=== PATIENT | female | born 1980 | race Caucasian/White ===

== ENCOUNTER 2024-11-01 09:11 | Emergency (ER) | payer BC, SELFPAY ==
[2024-11-01 09:25] VITALS: BP 126/90; PULSE 88; RESP 16; TEMP 36.2; O2SAT 98
--- NOTE | 2024-11-01 09:55 | CRLHL7_ITS ---
For Patients: As a result of the Cures Act, medical imaging exams and procedure reports are released immediately into your electronic medical record. You may view this report before your referring provider. If you have questions, please contact your health care provider. Indication: LOWER ABD PAIN, S/P HYSTERECTOMY 6 DAYS AGO. NO BM SINCE Technique: CT abdomen/pelvis with IV contrast, 68 mL Isovue 370 Comparison: None Findings: Lower thorax: Unremarkable Abdomen/pelvis: The liver, gallbladder and biliary system, spleen, pancreas, adrenal glands, kidneys, ureters, and bladder are unremarkable in appearance. Postsurgical changes of hysterectomy. No suspicious adnexal lesions. The suspected left ovary is unremarkable in appearance (series number 2, image 113), the right ovary is not visualized. Distended distal sigmoid colon/rectum, filled with feces with associated mural thickening and adjacent fat stranding. There is no evidence of small or large bowel obstruction. No free fluid or free air. No abscess. No abdominopelvic lymphadenopathy. The vasculature is unremarkable. Soft tissue/musculoskeletal: Likely some minimal edema in the anterior abdominal wall subcutaneous fat at trocar placement sites. The osseous structures are unremarkable. Impression: 1. Distended distal sigmoid colon/rectum, filled with feces with associated mural thickening and adjacent fat stranding, consistent with stercoral colitis. 2. There is no evidence of small or large bowel obstruction. 3. Postsurgical changes of hysterectomy without apparent complication. 4. No free fluid or free air. No definitive abscess. Please note that all CT scans at this facility use dose modulation, iterative reconstruction, and/or weight-based dosing when appropriate to reduce radiation dose to as low as reasonably achievable. Dictated by Fortunato Mckeon MD @ 11/01/2024 10:53:25 AM (Electronically Signed)
--- NOTE | 2024-11-01 09:57 | ED.GENADULT ---
HPI - General Adult General Chief complaint: Constipation Stated complaint: hysterectomy on 10/26, can't urinate or poo Time Seen by Provider: 11/01/24 09:49 History of Present Illness HPI narrative: This 43-year-old female comes in with abdominal pain. She had a hysterectomy completed elsewhere 6 days ago. She has not had much for bowel movements since then and was instructed by a provider yesterday to use multiple [id number] medications to try to get things moving. She states that after a while this made things worse with increased abdominal pain. She has had some liquid in the toilet but states that this was after administering and enema. She does not report any fevers. She does state that her urine seems to be more cloudy. She was taking some narcotics initially for pain relief but discontinued this several days ago because she did not want the adverse effects of these medicines. Related Data Home Medications ?Medication ?Instructions ?Recorded ?Confirmed acetaminophen 500 mg tablet 500 mg PO Q6H PRN 11/01/24 11/01/24 (Tylenol Extra Strength) albuterol sulfate 90 mcg/actuation 2 inh inhalation Q6-8H PRN 11/01/24 11/01/24 aerosol inhaler armodafinil 250 mg tablet (Nuvigil) 250 mg PO QAM 11/01/24 11/01/24 ascorbic acid (vitamin C) 1,000 mg 1 g PO DAILY 11/01/24 11/01/24 capsule cholecalciferol (vitamin D3) 125 125 mcg PO DAILY 11/01/24 11/01/24 mcg (5,000 unit) capsule docosahexaenoic acid (dha)-epa 120 1 cap PO DAILY 11/01/24 11/01/24 mg-180 mg capsule (Fish Oil) docusate sodium 100 mg capsule 100 mg PO BID 11/01/24 11/01/24 (Colace) ibuprofen 600 mg tablet 600 mg PO Q8H 11/01/24 11/01/24 losartan 25 mg tablet 25 mg PO DAILY 11/01/24 11/01/24 multivitamin 1 tab PO DAILY 11/01/24 11/01/24 ocrelizumab 30 mg/mL intravenous 600 mg IV [id number] 11/01/24 11/01/24 solution (Ocrevus) oxcarbazepine 150 mg tablet 150 mg PO DAILY 11/01/24 11/01/24 (Trileptal) oxycodone 5 mg tablet 5 mg PO Q4-6H PRN 11/01/24 11/01/24 sertraline 50 mg tablet 50 mg PO DAILY 11/01/24 11/01/24 sumatriptan succinate 100 mg See Rx Instructions PO .COMPLEX 11/01/24 11/01/24 tablet (Imitrex) Previous Rx's ?Medication ?Instructions ?Recorded hydrocortisone-pramoxine 2.5 %-1 % 1 applic [place] QID PRN #30 grams 11/01/24 rectal cream (Analpram-HC) ketorolac 10 mg tablet 10 mg PO Q8H 5 days #15 tabs 11/01/24 Allergies Allergy/AdvReac Type Severity Reaction Status Date / Time Benzodiazepines Allergy Unknown Verified 11/01/24 11:25 Penicillins Allergy Unknown Verified 11/01/24 11:25 Sulfa (Sulfonamide Allergy Unknown Verified 11/01/24 11:25 Antibiotics) Review of Systems Status of ROS: Reports: 10 or more systems reviewed and unremarkable except as noted in History and below Narrative: Constitutional: No fevers, no weight gain or loss. Eyes: No discharge. No vision changes. HENT: No congestion, no sore throat, no ear pain. Cardiovascular: No chest pain, no palpitations. Respiratory: No shortness of breath, no wheezes, no cough. Gastrointestinal: Abdominal pain as described above. Genitourinary: No dysuria, no hematuria. Musculoskeletal: Normal range of motion. Skin: No rashes, no pruritis. Neurological: No dizziness, weakness, sensory change, speech change. Endo/Heme/Allergies: No bruising or bleeding. No polydipsia. Pysch: no suicidality, no anxiety, no insomnia. All other systems reviewed and are negative. Exam Narrative: Exam Narrative: Constitutional: Well-developed, well-nourished, no acute distress. HEENT: Normocephalic, atraumatic. Neck: Normal range of motion. Nontender. Supple. Heart: Regular. No murmurs. Normal rate. Intact distal pulses. Lungs: Clear to auscultation. No chest discomfort. No wheezes, rhonchi, or rales. Abdomen: Decreased bowel sounds. Tenderness in the lower abdomen. Genitalia: Deferred. Back: No midline tenderness. Normal range of motion. Extremities: Normal range of motion. No injury. Skin: Intact. No rash. Warm. No erythema or pallor. Neurologic: No altered sensation. No weakness. Alert and oriented. Psychiatric: No suicidality. No anxiety or depression. No insomnia. Nursing notes and vitals signs are reviewed. Const: Vital Signs, click to edit/add: Vital Signs - 24 hr 11/01/24 09:25 11/01/24 10:24 11/01/24 10:25 Temperature 97.2 F L Pulse Rate 86 87 Pulse Rate [Pulse Oximeter] 88 Respiratory Rate 16 16 Blood Pressure 114/67 Blood Pressure [Ri ght Upper Arm] 126/90 H Pulse Oximetry 98 97 97 Oxygen Delivery Me thod Room Air 11/01/24 10:26 11/01/24 14:45 Temperature 98.7 F Pulse Rate 87 Pulse Rate [Pulse Oximeter] Respiratory Rate Blood Pressure Blood Pressure [Ri ght Upper Arm] Pulse Oximetry 97 Oxygen Delivery Me thod Course Vital Signs Vital signs: Initial Vital Signs Temperature 97.2 F L 11/01/24 09:25 Temperature Source Temporal Artery Scan 11/01/24 09:25 Pulse Rate 88 11/01/24 09:25 Pulse Rhythm Regular 11/01/24 09:25 Pulse Strength 3+ Normal 11/01/24 09:25 Respiratory Rate 16 11/01/24 09:25 Blood Pressure 126/90 H 11/01/24 09:25 Blood Pressure Mean 102 11/01/24 09:25 Blood Pressure Position Sitting 11/01/24 09:25 Pulse Oximetry 98 11/01/24 09:25 Oxygen Delivery Method Room Air 11/01/24 09:25 Vital Signs Temperature 97.2 F L 11/01/24 09:25 Pulse Rate 88 11/01/24 09:25 Respiratory Rate 16 11/01/24 09:25 Blood Pressure 126/90 H 11/01/24 09:25 Pulse Oximetry 98 11/01/24 09:25 Oxygen Delivery Method Room Air 11/01/24 09:25 Temperature 98.7 F 11/01/24 14:45 Pulse Rate 87 11/01/24 10:26 Respiratory Rate 16 11/01/24 10:25 Blood Pressure 114/67 11/01/24 10:25 Pulse Oximetry 97 11/01/24 10:26 Oxygen Delivery Method Room Air 12/05/24 09:25 Medications Administered Medications: Discontinued Medications Generic Name Dose Route Start Last Admin Trade Name Gelacio PRN Reason Stop Dose Admin Acetaminophen 1,000 mg 11/01/24 13:22 11/01/24 13:25 Acetaminophen 500 Mg Tablet PO 11/01/24 13:23 1,000 mg ONCE ONE Administration Hydromorphone HCl 0.5 mg 11/01/24 09:55 11/01/24 10:05 Hydromorphone 0.5 Mg/0.5 Ml Inj IVP 11/01/24 09:56 0.5 mg ONCE ONE Administration Sodium Chloride 500 mls @ 500 mls/hr 11/01/24 09:55 11/01/24 10:45 0.9 % Sodium Chloride 500 Ml IV 11/01/24 10:54 Infused .Q1H ONE Infusion Lidocaine HCl 6 ml 11/01/24 13:14 11/01/24 13:18 Lidocaine Hcl 2 % Jelly (Top) Sterile TOPICAL 11/01/24 13:15 6 ml ONCE ONE Administration Miscellaneous Medication 376 ml 11/01/24 13:22 11/01/24 13:45 Doc/Min Oil/Mag Cit/Sod Phos 376 Ml Enema NJ 11/01/24 13:23 376 ml ONCE ONE Administration Ondansetron HCl 4 mg 11/01/24 09:55 11/01/24 10:06 Ondansetron 2 Mg/Ml Inj IVP 11/01/24 09:56 4 mg ONCE ONE Administration Medical Decision Making MDM Narrative Medical decision making narrative: This patient comes in with lower abdominal pain and distension. She had a hysterectomy 6 days ago and has not had much for bowel movements since then likely due to a postop ileus. She also did take a few narcotic tablets initially but has not done so over the past 3 or 4 days. She appears to be very uncomfortable. An IV was established and CT imaging is obtained which returns with reassuring results. Her bladder and rectum are distended. A straight catheter was placed and did produce 650 mL of urine. Urinalysis is negative for infection. This did help her feel somewhat better. She did also have a tap water enema and a part of a pink lady enema but did not have much results from this. The nurse also did a simple digital rectal attempt at removing some stool and there were a few small stool evacuated. The patient is sore at her bottom and probably needs to rest without further attempts for now. It is difficult for her to bear down because of her recent surgery. When I listened to bowel sounds they were rather quiet so there is likely still some effect of an ileus postoperatively. She is okay to return home and is feeling better. I did provide prescription for Toradol and Analpram. Lab Data Labs: Lab Results 11/01/24 11/01/24 Range/Units 10:00 13:45 WBC 21.48 H (4.50-11.00) K/uL RBC 4.61 (4.00-5.20) m/uL Hgb 13.7 (12.0-16.0) gm/dL Hct 40.2 (33.0-51.0) % MCV 87 (80-100) fL MCH 30 (26-34) pg MCHC 34 (32-36) gm/dL RDW Coeff of Jose Guadalupe 12.2 (11.5-15.5) % Plt Count 331 (140-440) K/uL Neut % (Auto) 89.0 H (42.0-72.0) % Lymph % (Auto) 2.9 L (20-44) % [place] % (Auto) 7.8 (0.0-11.0) % Eos % (Auto) 0.0 (0.0-7.0) % Baso % (Auto) 0.1 (0.0-3.0) % Neut # (Auto) 19.10 H (1.7-7.0) K/uL Lymph # (Auto) 0.60 L (0.90-2.90) K/uL [place] # (Auto) 1.70 H (0.00-0.90) K/UL Eos # (Auto) 0.00 (0.00-0.50) K/uL Baso # (Auto) 0.00 (0.00-0.30) K/uL Abs Immat Gran (auto) 0.00 (0.00-0.30) K/uL Imm/Tot Granulo (auto) 0.2 % Sodium 135 (135-149) mmol/L Potassium 4.5 (3.6-5.1) mmol/L Chloride 103 (96-114) mmol/L Carbon Dioxide 26 (20-32) mmol/L Anion Gap 6 L (7-15) mEq/L BUN 12 (5-24) mg/dL Creatinine 0.6 (0.5-1.5) mg/dL Estimated Creat Clear 106.03 Estimated GFR 116 ml/min Glucose 129 H (60-115) mg/dL Calcium 9.3 (8.4-10.6) mg/dL Urine Color Yellow (Yellow) Urine Appearance Clear (Clear) Urine pH 7.0 (5.0-8.5) Ur Specific [place] 1.010 (1.000-1.030) Urine Protein Negative (Negative) Urine Glucose (UA) Negative (Negative) Urine Ketones 2+ A (Negative) Urine Blood Negative (Negative) Urine Nitrite Negative (Negative) Urine Bilirubin Negative (Negative) Urine Urobilinogen 0.2 (0.2-1.0) Ur Leukocyte Esterase Negative (Negative) Urine RBC 0-2 (0-2) Urine WBC 0-2 (0-5) Ur Squamous Epith Cells Few (None-Few) Urine Bacteria None (None) Imaging Data CT scan - abdomen: Radiologist's impression: 1. Distended distal sigmoid colon/rectum, filled with feces with associated mural thickening and adjacent fat stranding, consistent with stercoral colitis. 2. There is no evidence of small or large bowel obstruction. 3. Postsurgical changes of hysterectomy without apparent complication. 4. No free fluid or free air. No definitive abscess. Discharge Plan Discharge Clinical Impression: Constipation, Acute urinary retention Patient Disposition: Home w/ Parent or Adult Condition: Stable Additional Instructions: Use medications as prescribed and needed. Use [id number] treatments for constipation also as needed and directed. Follow up with MD return if worsening. Prescriptions: New ketorolac 10 mg tablet 10 mg PO Q8H 5 Days Qty: 15 0RF hydrocortisone-pramoxine [Analpram-HC] 2.5-1 % cream 1 applic [place] QID PRNQty: 30 0RF No Action sumatriptan succinate [Imitrex] 100 mg tablet See Rx Instructions .ROUTE .COMPLEX Rx Instructions: take 1 tab at onset of headache; if no relief, may repeat 1 tab after at least 2 hrs; max = 2 tabs/24 hrs oxycodone 5 mg tablet 5 mg PO Q4-6H PRN oxcarbazepine [Trileptal] 150 mg tablet 150 mg PO DAILY Fish Oil 120-180 mg capsule 1 cap PO DAILY Ocrevus 30 mg/mL solution 600 mg IV [id number] multivitamin Tablet 1 tab PO DAILY losartan 25 mg tablet 25 mg PO DAILY sertraline 50 mg tablet 50 mg PO DAILY armodafinil [Nuvigil] 250 mg tablet 250 mg PO QAM docusate sodium [Colace] 100 mg capsule 100 mg PO BID ibuprofen 600 mg tablet 600 mg PO Q8H acetaminophen [Tylenol Extra Strength] 500 mg tablet 500 mg PO Q6H PRN albuterol sulfate 90 mcg/actuation HFA aerosol inhaler 2 inh inhalation Q6-8H PRN ascorbic acid (vitamin C) 1,000 mg capsule 1 g PO DAILY cholecalciferol (vitamin D3) 125 mcg (5,000 unit) capsule 125 mcg PO DAILY Follow Up/Referrals: Shruti John, ELSIE, EXEC[employer]IST [Primary Care Provider] - Stand Alone Forms: [facility] Info Instructions
[2024-11-01] MEDS: 0.9 % SODIUM CHLORIDE 500 ML 500 ML IV (10:05)
[2024-11-01] MEDS: HYDROmorphone 0.5 mg/0.5 ml inj IVP (10:05)
[2024-11-01 10:06] LABS: Basophils Percent Auto 0.1 % (0.0-3.0); Hematocrit 40.2 % (33.0-51.0); Hemoglobin* 13.7 gm/dL (12.0-16.0); Immature Granulocytes Pct Auto 0.2 %; Lymphocytes Percent Auto 2.9 % (20-44); Mean Corpuscular HGB Conc 34 gm/dL (32-36); Mean Corpuscular Hemoglobin 30 pg (26-34); Mean Corpuscular Volume 87 fL (80-100); Monocytes Percent Auto 7.8 % (0.0-11.0); Platelet Count* 331 K/uL (140-440); RDW Coefficient of Variation % 12.2 % (11.5-15.5); Red Blood Count 4.61 m/uL (4.00-5.20); White Blood Count* 21.48 K/uL (4.50-11.00)
[2024-11-01] MEDS: ONDANSETRON 2 MG/ML inj 4 MG IVP (10:06)
[2024-11-01 10:08] LABS: Slide Review Reflex No
[2024-11-01 10:22] LABS: Chloride* 103 mmol/L (96-114); Potassium* 4.5 mmol/L (3.6-5.1); Sodium* 135 mmol/L (135-149)
[2024-11-01 10:24] VITALS: PULSE 86; O2SAT 97
[2024-11-01 10:24] LABS: Creatinine* 0.6 mg/dL (0.5-1.5); Est. Creatinine Clearance* 106.03; Estimated Glomerular Filt Rate 116 ml/min
[2024-11-01 10:25] VITALS: BP 114/67; PULSE 87; RESP 16; O2SAT 97
[2024-11-01 10:25] LABS: Anion Gap 6 mEq/L (7-15); Blood Urea Nitrogen* 12 mg/dL (5-24); Calcium* 9.3 mg/dL (8.4-10.6); Carbon Dioxide* 26 mmol/L (20-32); Glucose* 129 mg/dL (60-115)
[2024-11-01 10:26] VITALS: PULSE 87; O2SAT 97
[2024-11-01] MEDS: lidocaine HCL 2 % JELLY (TOP) STERILE 6 ML TOPICAL (13:18)
[2024-11-01] MEDS: ACETAMINOPHEN 500 MG TABLET 1000 MG PO (13:25)
[2024-11-01] MEDS: DOC/MIN OIL/MAG CIT/SOD PHOS 376 ML ENEMA PR (13:45)
[2024-11-01 14:14] LABS: Appearance Urine Clear (Clear); Bilirubin Urine Negative (Negative); Blood Urine Negative (Negative); Color Urine Yellow (Yellow); Glucose Urine Negative (Negative); Ketones Urine 2+ (Negative); Leukocyte Esterase Urine Negative (Negative); Nitrite Urine Negative (Negative); Protein Urine Negative (Negative); Urobilinogen Urine 0.2 (0.2-1.0)
[2024-11-01 14:22] LABS: RBC Urine 0-2 (0-2); Squamous Epithelial Cell Urine Few (None-Few); WBC Urine 0-2 (0-5)
[2024-11-01 14:45] VITALS: TEMP 37.1
== END 2024-11-01 15:08 | disposition home or self-care (01) ==
PROVIDERS: Emergency Provider Emergency Medicine Emergency Medical Services; PCP Nurse Practitioner Family
DX: K59.00 Constipation, unspecified (principal); R33.9 Retention of urine, unspecified
CPT/HCPCS: 36415; 74177; 80048; 81001; 85025; 96374; 96375; 99284; A9270; J1171; J2405; J7030; Q9967